=== PATIENT | female | born 1990 | race Caucasian/White ===

== ENCOUNTER 2017-12-28 19:35 | Emergency (ER) | payer OTHER ==
[2017-12-28] MEDS ORDERED: APAP/HYDROCODONE 325/5 TAB PO ONE (20:05)
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
[2017-12-28 21:20] VITALS: BP 122/86
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
[2017-12-28] MEDS ORDERED: OXYC-865 PO (21:30)
[2017-12-28] MEDS ORDERED: oxyCODONE/ACETAMIN 5/325MG TH 2 TAB/BOTTLE PO ONE (21:40)
== END 2017-12-28 21:44 | disposition home or self-care (01) ==
LOC: ER 19:58
DX: S42.032A Displaced fracture of lateral end of left clavicle, initial encounter for closed fracture (principal)
CPT/HCPCS: 70450; 72125; L0172; 99282